=== PATIENT | male | born 1990 | race Caucasian/White ===

== ENCOUNTER 2017-03-01 22:01 | Emergency (ER) | payer OTHER ==
[~2017-03-01] VITALS: Ht 182.8 cm; Wt 108.9 kg
== END 2017-03-01 23:50 | disposition home or self-care (01) ==
LOC: ED 22:01
DX: M54.6 Pain in thoracic spine (principal); V89.2XXA Person injured in unspecified motor-vehicle accident, traffic, initial encounter; Y93.89 Activity, other specified; Y92.9 Unspecified place or not applicable; Y99.9 Unspecified external cause status